=== PATIENT | male | born 1955 | race Hispanic/Latino ===

== ENCOUNTER 2019-01-27 08:36 | Emergency (ER) | payer MEDICARE ==
[~2019-01-27] VITALS: Ht 154.9 cm; Wt 80.3 kg
[2019-01-27 08:37] VITALS: BP 153/101
[2019-01-27 08:40] VITALS: BP 153/101
[2019-01-27] MEDS ORDERED: ATIVAN ONE ×2 (08:40)
[2019-01-27] MEDS ORDERED: ATIVAN PO STA (08:40)
--- NOTE | 2019-01-27 08:42 | NUR ---
ARRIVAL PATIENT ARRIVED TO ED2 VIA W/C WITH FAMILY, WAS BROUGHT TO THE ED FROM MED SURG, PATIENT WAS UP WITH HIS FAMILY WHO , HE BECAME SHAKY AND DIAPHORTIC, DOES HAVE A CARDIAC HISTORY, WAS BROUGHT TO THE ED FOR EVAL.
--- NOTE | 2019-01-27 08:44 | ER.PDOC ---
General Chief Complaint: General Complaint Stated Complaint: GRIEVING, IN FAMILY FEW MIN AGO TRAVEL OUT OF US: No Time seen by MD: 08:44 Source: patient, family Exam Limitations: no limitations History of Present Illness Timing/Duration: 1/2 hour Severity: moderate Modifying Factors: improves with rest Associated Symptoms: denies symptoms Allergies: Coded Allergies: No Known Allergies (Unverified , 01/27/19) Home Meds Unable to Obtain Active Prescriptions or Reported Meds Past Medical History Medical History: cardiac problems, diabetes, GERD, high cholesterol, hypertension, thyroid disease Surgical History: cardiac cath, hip, stent, shoulder Social History Smoking: non-smoker Alcohol Use: none Drug Use: none Reviewed Nursing Reviewed: Vital Signs, Abn. Noted Review of Systems All Other Systems: Reviewed and Negative Physical Exam General Appearance: Anxious EENT: eyes nml inspection Neck: Non-Tender Respiratory: other (HYPERVENTILATION) CVS: reg rate & rhythm Gastrointestinal: Normal Bowel Sounds Back: Normal Inspection Extremities: Normal Range of Motion Neurologic/Psychiatric: income tax advisor II-XII NML as Tested Skin: Diaphoresis Lymphatic: No Adenopathy Results/Orders Results/Orders Orders - ADAN TONY MD Cbc With Auto Diff (01/27/19 08:40) Comprehensive Metabolic Panel (01/27/19 08:40) Creatine Kinase (01/27/19 08:40) Creatine Kinase Mb (01/27/19 08:40) Troponin I (01/27/19 08:40) Probnp B-Type Aged Or Disabled Carer (01/27/19 08:40) PT (01/27/19 08:40) Partial Thromboplastin Time. (01/27/19 08:40) Helicobacter Pylori (01/27/19 08:40) D-Dimer (01/27/19 08:40) Xr Chest 1v (01/27/19 08:40) Ekg-Routine (01/27/19 08:40) Lorazepam (Ativan) (01/27/19 08:40) Vital Signs Date Time Temp Pulse Resp B/P (MAP) Pulse Ox O2 Delivery O2 Flow Rate FiO2 01/27/19 08:40 97.7 72 24 01/27/19 08:37 97.7 72 24 153/101 (118) 97 Room Air 01/27/19 08:37 97.7 72 24 97 Room Air Administered Medications Medications (Trade) Dose Ordered Sig/Valerie Route PRN Reason Start Time Stop Time Status Last Admin Dose Admin Lorazepam (Ativan) 2 mg STAT STAT PO 01/27/19 08:40 01/27/19 08:42 DC 01/27/19 08:44 2 MG Laboratory Tests Test 01/27/19 08:51 White Blood Count 7.2 10^3/uL (4.5-11.0) Red Blood Count 5.22 10^6/uL (4.50-5.90) Hemoglobin 14.5 g/dL (13.9-16.3) Hematocrit 42.0 % (37.0-53.0) Mean Corpuscular Volume 80.5 fL (78-100) Mean Corpuscular Hemoglobin 27.8 pg (26-34) Mean Corpuscular Hemoglobin Concent 34.5 g/dL (33-37) Red Cell Distribution Width 13.9 % (11.5-14.5) Platelet Count 198 10^3/uL (150-400) Mean Platelet Volume 8.9 fL (7.8-11.0) Neutrophils (%) (Auto) 62.6 % (41.0-85.0) Lymphocytes (%) (Auto) 25.3 % (24.0-44.0) Monocytes (%) (Auto) 9.8 % (5.0-12.0) Neutrophils # (Auto) 4.5 10^3/uL (1.8-7.7) Lymphocytes # (Auto) 1.8 10^3/uL (1.0-4.8) Monocytes # (Auto) 0.7 10^3/uL (0.3-0.8) Absolute Immature Granulocyte (auto 0.01 10^3 u/L (0-2) Immature Granulocytes % 0.10 % (0.00-0.50) Eosinophils % 1.4 % (0.0-5.0) Basophils % 0.8 % (0.0-0.2) H Basophils # 0.1 10^3/uL (0.0-0.1) Eosinophil Count 0.1 10^3/uL (0.0-0.2) Prothrombin Time 10.8 SEC (9.4-11.5) Prothrombin Time INR (Non-Therap) 1.0 Activated Partial Thromboplast Time 22.0 SEC (24.67-30.72) D-Dimer < 0.19 mg/L (0.19-0.49) L Helicobacter pylori Screen NEGATIVE (NEGATIVE) EKG/XRAY/CT/US EKG: NSR, no ST T wave changes Course Sepsis Screening Results: Posi: POSITIVE SEPSIS RISK Vitals & review Data Vital Sign - Last 24 Hours 01/27/19 01/27/19 01/27/19 08:37 08:37 08:40 Temp 97.7 97.7 97.7 Pulse 72 72 72 Resp 24 24 24 B/P (MAP) 153/101 (118) Pulse Ox 97 97 O2 Delivery Room Air Room Air Laboratory Tests Test 01/27/19 08:51 White Blood Count 7.2 10^3/uL Red Blood Count 5.22 10^6/uL Hemoglobin 14.5 g/dL Hematocrit 42.0 % Mean Corpuscular Volume 80.5 fL Mean Corpuscular Hemoglobin 27.8 pg Mean Corpuscular Hemoglobin Concent 34.5 g/dL Red Cell Distribution Width 13.9 % Platelet Count 198 10^3/uL Mean Platelet Volume 8.9 fL Neutrophils (%) (Auto) 62.6 % Lymphocytes (%) (Auto) 25.3 % Monocytes (%) (Auto) 9.8 % Neutrophils # (Auto) 4.5 10^3/uL Lymphocytes # (Auto) 1.8 10^3/uL Monocytes # (Auto) 0.7 10^3/uL Absolute Immature Granulocyte (auto 0.01 10^3 u/L Immature Granulocytes % 0.10 % Eosinophils % 1.4 % Basophils % 0.8 % Basophils # 0.1 10^3/uL Eosinophil Count 0.1 10^3/uL Prothrombin Time 10.8 SEC Prothrombin Time INR (Non-Therap) 1.0 Activated Partial Thromboplast Time 22.0 SEC D-Dimer < 0.19 mg/L Helicobacter pylori Screen NEGATIVE Sepsis Infection Criteria Pres: None O2 Sat by Pulse Oximetry: 97 Departure Time of Disposition: 09:22 Disposition: 01 HOME, SELF-CARE Impression: Primary Impression: Grief Condition: Improved Scripts Unable to Obtain Active Prescriptions or Reported Meds Duration or Time Spent with Pa: 20 MIN ADAN TONY MD Jan 27, 2019 08:44
[2019-01-27 08:56] LABS: BASOPHIL # 0.1 10^3/uL (0.0-0.1); BASOPHIL % 0.8 % (0.0-0.2); EOSINOPHIL # 0.1 10^3/uL (0.0-0.2); EOSINOPHIL % 1.4 % (0.0-5.0); HEMOGLOBIN 14.5 g/dL (13.9-16.3); LYMPHOCYTES # 1.8 10^3/uL (1.0-4.8); LYMPHOCYTES % 25.3 % (24.0-44.0); MEAN CELL HGB 27.8 pg (26-34); MEAN CELL HGB CONCENTRATION 34.5 g/dL (33-37); MEAN CORP VOLUME 80.5 fL (78-100); MEAN PLATELET VOLUME 8.9 fL (7.8-11.0); MONOCYTES # 0.7 10^3/uL (0.3-0.8); MONOCYTES % 9.8 % (5.0-12.0); NEUTROPHIL # 4.5 10^3/uL (1.8-7.7); NEUTROPHILS % 62.6 % (41.0-85.0); RED CELL DISTRIBUTION WIDTH 13.9 % (11.5-14.5); WHITE BLOOD CELL 7.2 10^3/uL (4.5-11.0)
--- NOTE | 2019-01-27 09:03 | DIREP ---
PROCEDURE:CHEST 1 VIEW COMPARISON:None. INDICATIONS:hyperventilation, dyspnea FINDINGS: LUNGS/PLEURA:No significant pulmonary parenchymal abnormalities. No effusions. VASCULATURE:Normal. Unremarkable pulmonary vasculature. CARDIAC:Normal. No cardiac silhouette abnormality or cardiomegaly. MEDIASTINUM:Normal. No visible mass or adenopathy. BONES:Normal. No fracture or visible bony lesion. OTHER:Overlying precordial cardiac monitoring leads CONCLUSION:No active cardiopulmonary disease process Dictated by: Alen Mchugh M.D. on 01/27/2019 at 09:01 AM
[2019-01-27 09:20] VITALS: BP 168/98
[2019-01-27 09:25] LABS: ALANINE AMINOTRANSFERASE(ML) 53 U/L (12-78); ALKALINE PHOSPHATASE 86 U/L (50-136); ASPARTATE AMINO TRANSFERASE 34 U/L (0-35); CALCIUM 8.6 mg/dL (8.4-10.5); CARBON DIOXIDE 25.8 mmol/L (20.0-32); GLUCOSE 178 mg/dL (70-110)
--- NOTE | 2019-01-28 00:55 | PCM.EKG ---
[facility] Test Date: 2019-01-27 Test Time: 08:33:24 Pat Name: KRISTINA PROCTOR Department: Patient ID: [id number] Room: Gender: M Mill Operator Head: TB : 1955 Requested By: JOEL NEUMANN Order Number: [id number] Reading MD: Joel Neumann Measurements Intervals [place] Rate: 66 P: 54 NC: 201 QRS: -7 QRSD: 107 T: 25 QT: 418 QTc: 438 Interpretive Statements Sinus rhythm Baseline wander in lead(s) III,aVF No previous ECG available for comparison Electronically Signed On 01-29-2019 16:37:19 CDT by Joel Neumann Please click the below link to view image of tracing.
== END 2019-01-27 09:26 | disposition home or self-care (01) ==
LOC: ER 08:36
DX: F43.21 Adjustment disorder with depressed mood (principal); E78.00 Pure hypercholesterolemia, unspecified; I10 Essential (primary) hypertension; E07.9 Disorder of thyroid, unspecified; E11.9 Type 2 diabetes mellitus without complications; R79.1 Abnormal coagulation profile
CPT/HCPCS: 36415; 71045; 80053; 82550; 82553; 83880; 84484; 85025; 85379; 85610; 85730; 86677; 93005; 99285